=== PATIENT | male | born 1955 | race Caucasian/White ===

== ENCOUNTER 2016-12-31 06:32 | Day surgery (SDC) | payer BC ==
[2016-12-31] MEDS ORDERED: Lactated Ringers 1,000 ML IV SCH (07:00)
[2016-12-31] MEDS ORDERED: ceFAZolin 2 GM in Premix Bag 1 BAG IV ONE (07:00)
[2016-12-31] MEDS ORDERED: Bupivacaine 0.25%/EPINEPHrine 1:200,000 10 ML SDV INJECT ONE (07:00)
--- NOTE | 2016-12-31 07:17 | PCM.PREANE ---
Preanesthetic Assessment - Anesthesia/Transfusion/Family Hx Anesthesia History: Prior Anesthesia Without Reaction Family History of Anesthesia Reaction: No Transfusion History: No Prior Transfusion(s) Intubation History: Unknown - Review of Systems General: No Symptoms Pulmonary: No Symptoms Cardiovascular: No Symptoms Gastrointestinal: No symptoms Neurological: No Symptoms Other: Reports: None - Physical Assessment Height: 1.85 m Weight: 104.326 kg ASA Class: 2 Mental Status: Alert & Oriented x3 Airway Class: Mallampati = 2 Dentition: Reports: Normal Dentition, Piru(s) (x2 upper front) Thyro-Mental Finger Breadths: 3 Mouth Opening Finger Breadths: 3 ROM/Head Extension: Full Lungs: Clear to auscultation, Normal respiratory effort - Allergies Allergies/Adverse Reactions: Allergies Allergy/AdvReac Type Severity Reaction Status Date / Time No Known Allergies Allergy Verified 12/29/16 14:23 - Blood Blood Available: No - Anesthesia Plan Pre-Op Medication Ordered: None - Acknowledgements Anesthesia Type Planned: MAC Pt an Appropriate Candidate for the Planned Anesthesia: Yes Alternatives and Risks of Anesthesia Discussed w Pt/Guardian: Yes Pt/Guardian Understands and Agrees with Anesthesia Plan: Yes PreAnesthesia Questionnaire HEENT History: Reports: None, Other (See Below) (h/o maxillary sinusitis) Cardiovascular History: Reports: None Respiratory History: Reports: None Gastrointestinal History: Reports: None Genitourinary History: Reports: None Musculoskeletal History: Reports: None, Other (See Below) (h/o back pain) Neurological History: Reports: None Psychiatric History: Reports: None Endocrine/Metabolic History: Reports: Obesity/BMI 30+ Hematologic History: Reports: None Immunologic History: Reports: None Oncologic (Cancer) History: Reports: None Dermatologic History: Reports: None - Past Surgical History Head Surgeries/Procedures: Reports: None HEENT Surgical History: Reports: Tonsillectomy Cardiovascular Surgical History: Reports: None Respiratory Surgical History: Reports: None GI Surgical History: Reports: Colonoscopy, Hernia, Inguinal Male Surgical History: Reports: Vasectomy Endocrine Surgical History: Reports: None Neurological Surgical History: Reports: None Musculoskeletal Surgical History: Reports: None Oncologic Surgical History: Reports: None Dermatological Surgical History: Reports: None - SUBSTANCE USE Smoking Status *Q: Former Smoker (quit 20-25 years ago) Tobacco Use Within Last Twelve Months: No Recreational Drug Use History: No - HOME MEDS Home Medications: Home Meds . [No Known Home Meds] 12/29/16 [History] - CURRENT (IN HOUSE) MEDS Current Meds: Current Medications Lactated Ringer's (Ringers, Lactated) 1,000 mls @ 125 mls/hr IV ASDIRECTED CECILIA Last Admin: 12/31/16 06:55 Dose: 125 mls/hr Cefazolin Sodium/Dextrose 2 gm (/ Premix) 50 mls @ 100 mls/hr IV ONETIME ONE Stop: 12/31/16 07:29 Discontinued Medications Bupivacaine HCl/Epinephrine Bitart (Marcaine 0.25%/Epinephrine 1:200,000) 10 ml INJECT ONETIME ONE Stop: 12/31/16 07:01
[2016-12-31] MEDS ORDERED: Lidocaine 2% 5 ML SDV ONE (07:22)
[2016-12-31] MEDS ORDERED: Midazolam 1 MG/ML 2 ML SDV ONE (07:23)
[2016-12-31] MEDS ORDERED: fentaNYL 100 MCG/2 ML SDV ONE (07:23)
[2016-12-31] MEDS ORDERED: Propofol 200 MG/20 ML SDV ONE (07:23)
[2016-12-31] MEDS ORDERED: Bupivacaine 0.25%/EPINEPHrine 1:200,000 10 ML SDV ONE (07:31)
[2016-12-31] MEDS ORDERED: Sodium Chloride 0.9% 20 ML ONE (07:31)
[2016-12-31] MEDS ORDERED: cefOXitin 1 GM Vial ONE (07:31)
[2016-12-31] MEDS ORDERED: fentaNYL 100 MCG/2 ML SDV IVPUSH PRN (08:28)
[2016-12-31 10:04] VITALS: BP 129/73
--- NOTE | 2016-12-31 16:29 | PCM.OPNOTE ---
- General Post-Op/Procedure Note Date of Surgery/Procedure: 12/31/16 Operative Procedure(s): excision of right middle finger mass Pre Op Diagnosis: right middle finger mass Post-Op Diagnosis: Same Anesthesia Technique: Local, MAC Primary Surgeon: Bruna Bansal Supervisor Alteration Workroom: Muriel Salinas Pathology: mass sent for pathology Complications: None Condition: Good Free Text/Narrative:: Intake & Output 12/31/16 12/31/16 12/31/16 07:59 15:59 23:59 Intake Total 2100 Balance 2100 [id number]
--- NOTE | 2016-12-31 22:29 | OR ---
SURGEON: ALEXIS HARRISON MD DATE OF PROCEDURE: 12/31/2016 PREOPERATIVE DIAGNOSIS: Right middle finger mass. POSTOPERATIVE DIAGNOSIS: Right middle finger mass. PROCEDURES: Excision of right dorsal middle finger mass. ANESTHESIA: Local MAC. INTERACTIVE GRAPHIC DESIGNER: Muriel Salinas. INDICATIONS: Mr. Kramer is a 61-year-old gentleman with a mass in the dorsum of the middle finger of the right side. Risks and benefits of excision were discussed with him and he was in agreement to proceed. It comes and goes, because it continues to cause pain and some weakness in full pecan mallow dipper. We discussed removal and he would like to proceed. Risks were including, but not limited to, bleeding, infection, damage to underlying or overlying structures, possible need for future interventions and possible scarring. PROCEDURE IN DETAILS: After informed consent was obtained and placed on the chart, the patient was brought to the operating theater and laid in the supine position. After adequate local MAC anesthetic was obtained, the area was prepped and draped in normal fashion. Time-out was completed to confirm [id number]. The arm was then exsanguinated and the tourniquet inflated to 200 mmHg. A 15 blade was then used to dissect through the skin and the lesion itself was dissected circumferentially using scissor dissection. The mass was excised en bloc and sent for pathology. The wound was irrigated and closed using a running 4-0 Monocryl stitch for the skin. It was dressed with Steri-Strips, Daphne, and a 2-inch PABLO wrap. The patient tolerated this well and all counts of needles were correct at the end the case. FOLLOWUP INSTRUCTIONS: The patient will see us in 10 to 14 days sooner if any problems, questions, or concerns. We will call with pathology results. PORFIRIO / ELENI /[id number]
== END 2016-12-31 09:30 | disposition home or self-care (01) ==
LOC: MW.SDS 06:32
PROVIDERS: ATTEND Plastic Surgery
DX: D17.39 Benign lipomatous neoplasm of skin and subcutaneous tissue of other sites (principal); M54.5 Low back pain; E66.9 Obesity, unspecified; Z87.891 Personal history of nicotine dependence; Z98.52 Vasectomy status; Z98.890 Other specified postprocedural states
CPT/HCPCS: 11423; J0694; J2250; J3010; J7120; 00400; 88305; J2704

== ENCOUNTER 2017-02-07 02:17 | Emergency (ER) | payer BC ==
[2017-02-07] MEDS ORDERED: Sodium Chloride 0.9% 1,000 ML IV ONE (02:32)
[2017-02-07] MEDS ORDERED: Ondansetron 4 MG/2 ML SDV IVPUSH ONE (02:32)
[2017-02-07] MEDS ORDERED: Ketorolac 30 MG/ML SDV IVPUSH ONE (02:32)
--- NOTE | 2017-02-07 03:01 | EDM.PDOC ---
ED HPI GENERAL MEDICAL PROBLEM - General Chief Complaint: Flank Pain Stated Complaint: PAIN IN LEFT SIDE Time Seen by Provider: 02/07/17 03:00 Source of Information: Reports: Patient - History of Present Illness INITIAL COMMENTS - FREE TEXT/NARRATIVE: HISTORY AND PHYSICAL: History of present illness: []Patient presents by private vehicle with 2 days of left flank pain he rates 4 out of 10 radiates from the left flank around to the left lower quadrant abdomen no nausea or vomiting no fever chills sweats Denies chest pain shortness breath headache dizziness or palpitation no bowel or urine symptoms Review of systems: As per history of present illness and below otherwise all systems reviewed and negative. Past medical history: As per history of present illness and as reviewed below otherwise noncontributory. Surgical history: As per history of present illness and as reviewed below otherwise noncontributory. Social history: No reported history of drug or alcohol abuse. Family history: As per history of present illness and as reviewed below otherwise noncontributory. Gen. no acute distress nontoxic Physical exam: HEENT: Atraumatic, normocephalic, pupils reactive, negative for conjunctival pallor or scleral icterus, mucous membranes moist, throat clear, neck supple, nontender, trachea midline. Lungs: Clear to auscultation, breath sounds equal bilaterally, chest nontender. Heart: S1S2, regular, negative for clicks, rubs, or JVD. Abdomen: Soft, nondistended, nontender. Negative for masses or hepatosplenomegaly. Negative for costovertebral tenderness. Pelvis: Stable nontender. Genitourinary: Deferred. Rectal: Deferred. Extremities: Atraumatic, negative for cords or calf pain. Neurovascular unremarkable. Neuro: Awake, alert, oriented. Cranial nerves II through XII unremarkable. Cerebellum unremarkable. Motor and sensory unremarkable throughout. Exam nonfocal. Skin unremarkable Diagnostics: []CBC, CMP, UA, urine culture troponin EKG CT abdomen pelvis with and without contrast Therapeutics: []1 L normal saline bolus Toradol 30 mg IV Zofran 8 mg IV Cipro 500 mg by mouth now and twice a day 10 days Potter 5 per 325 one by mouth every 6 when necessary #30 no refill Impression: [Left lower quadrant pain Definitive disposition and diagnosis as appropriate pending reevaluation and review of above. Left Flank Pain Score (Numeric/FACES): 5 - Related Data Allergies Allergy/AdvReac Type Severity Reaction Status Date / Time No Known Allergies Allergy Verified 12/29/16 14:23 Home Meds: Home Meds . [No Known Home Meds] 02/07/17 [History] Past Medical History HEENT History: Reports: Impaired Vision, Other (See Below) Other HEENT History: glasses Cardiovascular History: Reports: None Respiratory History: Reports: None Gastrointestinal History: Reports: None Genitourinary History: Reports: None Musculoskeletal History: Reports: None, Other (See Below) (h/o back pain) Neurological History: Reports: None Psychiatric History: Reports: None Endocrine/Metabolic History: Reports: Obesity/BMI 30+ Hematologic History: Reports: None Immunologic History: Reports: None Oncologic (Cancer) History: Reports: None Dermatologic History: Reports: None - Past Surgical History Head Surgeries/Procedures: Reports: None HEENT Surgical History: Reports: Tonsillectomy Cardiovascular Surgical History: Reports: None Respiratory Surgical History: Reports: None GI Surgical History: Reports: Colonoscopy, Hernia, Inguinal Male Surgical History: Reports: Vasectomy Endocrine Surgical History: Reports: None Neurological Surgical History: Reports: None Musculoskeletal Surgical History: Reports: Other (See Below) Other Musculoskeletal Surgeries/Procedures:: cyst removed from finger Oncologic Surgical History: Reports: None Dermatological Surgical History: Reports: None Social & Family History - Tobacco Use Smoking Status *Q: Never Smoker Years of Tobacco use: 5 Packs/Tins Daily: 1 Second Hand Smoke Exposure: No - Caffeine Use Caffeine Use: Reports: Coffee - Recreational Drug Use Recreational Drug Use: No Drug Use in Last 12 Months: No ED ROS GENERAL - Review of Systems Review Of Systems: ROS reveals no pertinent complaints other than HPI. ED EXAM, GENERAL - Physical Exam Exam: See Below Course - Vital Signs Last Recorded V/S: Last Vital Signs Temp 36.3 C 02/07/17 02:27 Pulse 81 02/07/17 02:27 Resp 14 02/07/17 02:27 BP 158/97 H 02/07/17 02:27 Pulse Ox 94 L 02/07/17 02:27 - Orders/Labs/Meds Orders: Active Orders 24 hr Category Date Time Status EKG Documentation Completion [RC] STAT Care 02/07/17 03:10 Active Abdomen Pelvis w wo Cont [CT] Stat Exams 02/07/17 03:08 Taken CULTURE URINE [RM] Stat Lab 02/07/17 02:40 Received Ciprofloxacin [Ciprofloxacin HCl] Med 02/07/17 04:47 Once 500 mg PO ONETIME ONE Medication Orders Ciprofloxacin (Ciprofloxacin Hcl) 500 mg PO ONETIME ONE Stop: 02/07/17 04:48 Labs: Laboratory Tests 02/07/17 02/07/17 02/07/17 Range/Units 02:40 02:40 02:40 WBC 12.59 H (4.0-11.0) K/uL RBC 5.48 (4.50-5.90) M/uL Hgb 15.6 (13.0-17.0) g/dL Hct 45.9 (38.0-50.0) % MCV 83.8 (80.0-98.0) fL MCH 28.5 (27.0-32.0) pg MCHC 34.0 (31.0-37.0) g/dL RDW Std Deviation 40.3 (28.0-62.0) fl RDW Coeff of Gillian 13 (11.0-15.0) % Plt Count 187 (150-400) K/uL MPV 11.40 (7.40-12.00) fL Neut % (Auto) 60.5 (48.0-80.0) % Lymph % (Auto) 28.4 (16.0-40.0) % Ocean % (Auto) 7.9 (0.0-15.0) % Eos % (Auto) 2.6 (0.0-7.0) % Baso % (Auto) 0.6 (0.0-1.5) % Neut # (Auto) 7.6 H (1.4-5.7) K/uL Lymph # (Auto) 3.6 H (0.6-2.4) K/uL Ocean # (Auto) 1.0 H (0.0-0.8) K/uL Eos # (Auto) 0.3 (0.0-0.7) K/uL Baso # (Auto) 0.1 (0.0-0.1) K/uL Nucleated RBC % 0.0 /100WBC Nucleated RBCs # 0 K/uL Sodium 141 (136-146) mmol/L Potassium 4.6 (3.5-5.1) mmol/L Chloride 105 (98-110) mmol/L Carbon Dioxide 29 (21-31) mmol/L BUN 25 H (6.0-23.0) mg/dL Creatinine 1.3 (0.6-1.5) mg/dL Est Cr Clr Drug Dosing 69.14 mL/min Estimated GFR (MDRD) 56.5 ml/min Glucose 132 H (60-110) mg/dL Calcium 9.6 (8.8-10.8) mg/dL Total Bilirubin 0.4 (0.1-1.5) mg/dL AST 24 (5-40) IU/L ALT 31 (8-54) IU/L Alkaline Phosphatase 63 (40-150) Troponin I (0.0-0.29) NG/ML Total Protein 7.7 (6.0-8.0) g/dL Albumin 4.3 (3.5-5.0) g/dL Globulin 3.4 (2.0-3.5) g/dL Albumin/Globulin Ratio 1.3 (1.3-2.8) Urine Color YELLOW Urine Appearance CLEAR Urine pH 6.0 (5.0-8.0) Ur Specific Holmen 1.025 (1.001-1.035) Urine Protein NEGATIVE (NEGATIVE) mg/dL Urine Glucose (UA) NEGATIVE (NEGATIVE) mg/dL Urine Ketones NEGATIVE (NEGATIVE) mg/dL Urine Occult Blood NEGATIVE (NEGATIVE) Urine Nitrite NEGATIVE (NEGATIVE) Urine Bilirubin NEGATIVE (NEGATIVE) Urine Urobilinogen 0.2 (<2.0) EU/dL Ur Leukocyte Esterase NEGATIVE (NEGATIVE) Urine RBC 0-1 (0-2/HPF) Urine WBC NONE SEEN (0-5/HPF) Ur Epithelial Cells RARE (NONE-FEW) Urine Bacteria RARE (NEGATIVE) 02/07/17 Range/Units 02:40 WBC (4.0-11.0) K/uL RBC (4.50-5.90) M/uL Hgb (13.0-17.0) g/dL Hct (38.0-50.0) % MCV (80.0-98.0) fL MCH (27.0-32.0) pg MCHC (31.0-37.0) g/dL RDW Std Deviation (28.0-62.0) fl RDW Coeff of Gillian (11.0-15.0) % Plt Count (150-400) K/uL MPV (7.40-12.00) fL Neut % (Auto) (48.0-80.0) % Lymph % (Auto) (16.0-40.0) % Ocean % (Auto) (0.0-15.0) % Eos % (Auto) (0.0-7.0) % Baso % (Auto) (0.0-1.5) % Neut # (Auto) (1.4-5.7) K/uL Lymph # (Auto) (0.6-2.4) K/uL Ocean # (Auto) (0.0-0.8) K/uL Eos # (Auto) (0.0-0.7) K/uL Baso # (Auto) (0.0-0.1) K/uL Nucleated RBC % /100WBC Nucleated RBCs # K/uL Sodium (136-146) mmol/L Potassium (3.5-5.1) mmol/L Chloride (98-110) mmol/L Carbon Dioxide (21-31) mmol/L BUN (6.0-23.0) mg/dL Creatinine (0.6-1.5) mg/dL Est Cr Clr Drug Dosing mL/min Estimated GFR (MDRD) ml/min Glucose (60-110) mg/dL Calcium (8.8-10.8) mg/dL Total Bilirubin (0.1-1.5) mg/dL AST (5-40) IU/L ALT (8-54) IU/L Alkaline Phosphatase (40-150) Troponin I < 0.10 (0.0-0.29) NG/ML Total Protein (6.0-8.0) g/dL Albumin (3.5-5.0) g/dL Globulin (2.0-3.5) g/dL Albumin/Globulin Ratio (1.3-2.8) Urine Color Urine Appearance Urine pH (5.0-8.0) Ur Specific Holmen (1.001-1.035) Urine Protein (NEGATIVE) mg/dL Urine Glucose (UA) (NEGATIVE) mg/dL Urine Ketones (NEGATIVE) mg/dL Urine Occult Blood (NEGATIVE) Urine Nitrite (NEGATIVE) Urine Bilirubin (NEGATIVE) Urine Urobilinogen (<2.0) EU/dL Ur Leukocyte Esterase (NEGATIVE) Urine RBC (0-2/HPF) Urine WBC (0-5/HPF) Ur Epithelial Cells (NONE-FEW) Urine Bacteria (NEGATIVE) Meds: Medications Generic Name Dose Route Start Last Admin Trade Name Freq PRN Reason Stop Dose Admin Ciprofloxacin 500 mg 02/07/17 04:47 Ciprofloxacin Hcl PO 02/07/17 04:48 ONETIME ONE Discontinued Medications Generic Name Dose Route Start Last Admin Trade Name Freq PRN Reason Stop Dose Admin Sodium Chloride 1,000 mls @ 999 mls/hr 02/07/17 02:32 02/07/17 02:48 Normal Saline IV 02/07/17 03:32 999 mls/hr STAT ONE Administration Ketorolac Tromethamine 30 mg 02/07/17 02:32 02/07/17 02:49 Toradol IVPUSH 02/07/17 02:33 30 mg ONETIME ONE Administration Ondansetron HCl 8 mg 02/07/17 02:32 02/07/17 02:50 Zofran IVPUSH 02/07/17 02:33 8 mg ONETIME ONE Administration Departure - Departure Time of Disposition: 04:49 Disposition: Home, Self-Care 01 Condition: Good Clinical Impression: Abdominal pain - Discharge Information Forms: ED Department Discharge Additional Instructions: Medication as prescribed Return if symptoms persist or worsen or new concerning symptoms develop Follow-up with primary care in 2 weeks sooner as needed [facility] [address] [place] [address] The following information is given to patients seen in the emergency department who are being discharged to home. This information is to outline your options for follow-up care. We provide all patients seen in our emergency department with a follow-up referral. The need for follow-up, as well as the timing and circumstances, are variable depending upon the specifics of your emergency department visit. If you don't have a primary care physician on staff, we will provide you with a referral. We always advise you to contact your personal physician following an emergency department visit to inform them of the circumstance of the visit and for follow-up with them and/or the need for any referrals to a consulting specialist. The emergency department will also refer you to a specialist when appropriate. This referral assures that you have the opportunity for follow-up care with a specialist. All of these measure are taken in an effort to provide you with optimal care, which includes your follow-up. Under all circumstances we always encourage you to contact your private physician who remains a resource for coordinating your care. When calling for follow-up care, please make the office aware that this follow-up is from your recent emergency room visit. If for any reason you are refused follow-up, please contact the [facility] emergency department at and asked to speak to the emergency department charge nurse. - My Orders Last 24 Hours: My Active Orders 02/07/17 02:40 CULTURE URINE [RM] Stat 02/07/17 03:08 Abdomen Pelvis w wo Cont [CT] Stat 02/07/17 03:10 EKG Documentation Completion [RC] STAT 02/07/17 04:47 Ciprofloxacin [Ciprofloxacin HCl] 500 mg PO ONETIME ONE - Assessment/Plan Last 24 Hours: My Active Orders 02/07/17 02:40 CULTURE URINE [RM] Stat 02/07/17 03:08 Abdomen Pelvis w wo Cont [CT] Stat 02/07/17 03:10 EKG Documentation Completion [RC] STAT 02/07/17 04:47 Ciprofloxacin [Ciprofloxacin HCl] 500 mg PO ONETIME ONE
[2017-02-07] MEDS ORDERED: Ciprofloxacin 500 MG Tab PO ONE (04:47)
[2017-02-07 05:11] VITALS: BP 129/90
[2017-02-07] MEDS ORDERED: Iopamidol 755 MG/ML 500 ML Multipack Bottle IVPUSH STA (06:53)
--- NOTE | 2017-02-09 12:43 | CT ---
EXAM DATE: 02/07/17 PATIENT'S AGE: 61 Patient: OLAMIDE CAMACHO Facility: [place], [place] Site . Site : 1955 Study: CT Abdomen/Pelvis [id number] 4:28:22 AM Ordering Physician: Gulshan Gonsales Final Report: INDICATION: abd pain TECHNIQUE: CT abdomen and pelvis acquired without and with IV contrast. COMPARISON: None FINDINGS: Lower chest: Mild scarring/atelectasis. Liver: Unremarkable. Spleen: Unremarkable. Pancreas: Fatty replacement. Gallbladder and bile ducts: Contracted. Kidneys: Unremarkable. Adrenal glands: Unremarkable. GI tract: Scattered colonic diverticulosis with no evidence of acute diverticulitis. Appendix is normal. Vascular structures: Atherosclerotic disease. No sign of aneurysm. Lymph nodes: Unremarkable. Miscellaneous: Unremarkable. No free air or significant free fluid. Pelvic Organs: The prostate is prominent in size. . Bones: Degenerative changes. IMPRESSION: No acute abnormality of the abdomen and pelvis. Dictated by Denver Brandon MD @ 02/07/2017 4:45:11 AM Dictated by: Denver Brandon MD @ 02/07/2017 04:45:26 (Electronic Signature) Report Signed by Proxy. [facility]
== END 2017-02-07 05:20 | disposition home or self-care (01) ==
LOC: MW.ED 02:17
DX: R10.32 Left lower quadrant pain (principal); E66.9 Obesity, unspecified; Z68.27 Body mass index [BMI] 27.0-27.9, adult; Z98.890 Other specified postprocedural states
CPT/HCPCS: 74178; 80053; 81001; 84484; 85025; 87086; 93005; 96361; 96374; 96375; 99284; A9270; J1885; J2405; J7040; Q9967

== ENCOUNTER 2022-06-18 22:23 | Emergency (ER) | payer BC, MEDICARE ==
[2022-06-18] MEDS ORDERED: Acetaminophen/oxyCODONE 325-5 MG Tab PO ONE (23:31)
[2022-06-19 00:45] VITALS: BP 157/90; PULSE 78
== END 2022-06-19 00:42 | disposition home or self-care (01) ==
LOC: MW.ED 22:23
DX: M25.461 Effusion, right knee (principal); E66.9 Obesity, unspecified; Z68.25 Body mass index [BMI] 25.0-25.9, adult
CPT/HCPCS: 73560; 99283; A9270

== ENCOUNTER 2022-11-14 09:39 | Day surgery (SDC) | payer MEDICARE, OTHER ==
[~2022-11-14 09:39] MED LIST: Lactated Ringers 1,000 ML IV SCH
[2022-11-14] MEDS ORDERED: Propofol 200 MG/20 ML SDV ONE ×2 (09:58→10:51)
[2022-11-14] MEDS ORDERED: fentaNYL 100 MCG/2 ML SDV ONE (09:58)
[2022-11-14] MEDS ORDERED: Lidocaine 2% 5 ML SDV ONE (09:58)
[2022-11-14] MEDS ORDERED: Lactated Ringers 1,000 ML IV SCH (11:15)
[2022-11-14 13:39] VITALS: BP 135/79; PULSE 70
== END 2022-11-14 12:05 | disposition home or self-care (01) ==
LOC: MW.SDS 09:39
PROVIDERS: ATTEND Surgery
DX: Z12.11 Encounter for screening for malignant neoplasm of colon (principal); K29.50 Unspecified chronic gastritis without bleeding; B96.81 Helicobacter pylori [H. pylori] as the cause of diseases classified elsewhere; K20.90 Esophagitis, unspecified without bleeding; K22.89 Other specified disease of esophagus; R63.4 Abnormal weight loss; E78.00 Pure hypercholesterolemia, unspecified; Z87.891 Personal history of nicotine dependence; Z79.899 Other long term (current) drug therapy
CPT/HCPCS: 43239; G0121; J2704; J3010; J7120; 00813; J3490